=== PATIENT | female | born 1955 | race Caucasian/White ===

== ENCOUNTER → 2017-07-21 | Outpatient (CLI) | payer OTHER | LOC: FIMAGING 08:10 | PROVIDERS: ATTEND Family Medicine | DX: Z12.31 Encounter for screening mammogram for malignant neoplasm of breast (principal); Z80.3 Family history of malignant neoplasm of breast ==

== ENCOUNTER 2017-10-10 12:48 | Emergency (ER) | payer OTHER ==
--- NOTE | 2017-10-10 13:43 | EDPHY ---
H & P Time Seen by Provider: 10/10/17 13:15 HPI/ROS: CHIEF COMPLAINT: Laceration right thigh HISTORY OF PRESENT ILLNESS: 61-year-old female presents to the emergency department with laceration to the right thigh. She accidentally cut herself while shaving and this was over a varicose vein. This apparently caused a large amount of bleeding. She went to urgent care initially in the center to the emergency department for evaluation. She believes her tetanus shot is current. She denies any other trauma or injury. ROS: Denies numbness or tingling in her toes, retained foreign body. Past Medical/Surgical History: Varicose veins, right knee surgery Social History: Smoking Status: Never smoked Physical Exam: On examination the patient has a very small less than 0.5 cm laceration overlying the anterior lateral aspect of her right thigh. Active bleeding is noted. This is not pulsatile. She has full range of motion of her right lower extremity. No bony tenderness. No evidence of retained foreign body. Constitutional: Initial Vital Signs Temperature (C) 37 C 10/10/17 12:59 Heart Rate 94 10/10/17 12:59 Respiratory Rate 18 10/10/17 12:59 Blood Pressure 186/88 H 10/10/17 12:59 O2 Sat (%) 94 10/10/17 12:59 O2 Delivery Mode Room Air Allergies/Adverse Reactions: meperidine [From Demerol] Allergy (Verified 10/10/17 12:58) Home Medications: Medication Instructions Recorded Levothyroxine 10/10/17 MDM/Departure - MDM Procedures: Laceration repair. Verbal consent was obtained from the patient. The less than 0.5 cm laceration on the location was anesthetized using 1% lidocaine with epinephrine. The wound was irrigated with saline, draped and explored to its base with a gloved finger. There were no deep structures involved. No tendon injury was identified. The wound was repaired with 4 0 Ethilon, 1 suture. The wound repair was simple. The procedure was performed by myself. Surgical foam, 4x4s and Antonio bandage applied. ED Course/Re-evaluation: 61-year-old female presents with laceration to her right thigh. The wound was repaired and surgical foam and dressing applied. Patient was given wound care precautions. - Depart Disposition: Home, Routine, Self-Care Clinical Impression: Laceration of right thigh Qualifiers: Encounter type: initial encounter Qualified Code(s): S71.111A - Laceration without foreign body, right thigh, initial encounter Condition: Good Instructions: Care For Your Stitches (ED), Laceration (ED), Acute Wounds (ED) Additional Instructions: Wound Care Follow-Up: Removal of sutures in 10 days. Suture removal is complimentary in uncomplicated cases. Infection or abnormal findings would require reevaluation by the MD. In that case, you may be billed. Keep wound dry, clean and protected. No open water until sutures have been removed. Return if you develop recurring bleeding, pain or any signs of infection. Referrals: Aminta Walters MD [Primary Care Provider] - As per Instructions
[2017-10-10 13:52] VITALS: BP 133/82
== END 2017-10-20 11:01 | disposition home or self-care (01) ==
PROC: 0HQHXZZ Repair Right Upper Leg Skin, External Approach (ICD-10-PCS; principal; 2017-10-10)
DX: S71.111A Laceration without foreign body, right thigh, initial encounter (principal); W26.8XXA Contact with other sharp object(s), not elsewhere classified, initial encounter; Y99.8 Other external cause status; Y93.89 Activity, other specified